=== PATIENT | female | born 1960 | race Caucasian/White ===

== ENCOUNTER 2017-02-21 22:18 | Inpatient (IN) | payer MEDICAID ==
[~2017-02-21] VITALS: Ht 152.4 cm; Wt 135.2 kg
--- NOTE | 2017-02-21 22:34 | NUR ---
PT TO LOBBY PENDING BED AVAILABILITY, RESP E/U. NO ACUTE DISTRESS NOTED.
--- NOTE | 2017-02-21 23:54 | NUR ---
REC'D A 56/F IN RM 2B WITH C/O SOB X 6 MONTHS. PT REPORTS MUSCLE SPASM AROUND THE RIB CAGE. PT AAOX4, RESP EVEN AND UNLABORED. CALL LIGHT WITHIN REACH, WILL CONTINUE TO MONITOR.
--- NOTE | 2017-02-22 00:15 | NUR ---
DR RONQUILLO AT BEDSIDE FOR MSE
[2017-02-22 00:48] LABS: BASOPHIL % 0.4 % (0-2); PLATELET COUNT 233 x10^3mcL (130-400)
--- NOTE | 2017-02-22 01:19 | NUR ---
PT AMBULATED TO THE RESTROOM WITH SPECIMEN CONTAINER.
[2017-02-22 01:27] LABS: CALCIUM 9.1 mg/dL (8.5-10.1); CARBON DIOXIDE 30.9 mmol/L (21-32); CHLORIDE SERUM 106 mmol/L (98-107); CREATININE SERUM 0.9 mg/dL (0.6-1.0); GFR1 > 60 mL/min; GLUCOSE SERUM 126 mg/dL (74-106); POTASSIUM SERUM 3.6 mmol/L (3.5-5.1); SODIUM SERUM 143 mmol/L (136-145)
--- NOTE | 2017-02-22 01:31 | NUR ---
SECOND BREATHING TREATMENT IN PROGRESS.
[2017-02-22 01:36] LABS: microscopic required? NO
[2017-02-22 01:40] LABS: ALBUMIN 3.6 g/dL (3.4-5.0); ALKALINE PHOSPHATASE 70 U/L (46-116); ALT/SGPT 23 U/L (14-59); AMYLASE 36 U/L (25-115); AST/SGOT 13 U/L (15-37); CHOLESTEROL 169 mg/dL (<200); HDL CHOLESTEROL 45 mg/dL (40-60); LIPASE 148 IU/L (73-393); T4(THYROXINE) 7.8 ug/dL (4.7-13.3); TOTAL PROTEIN, SERUM 7.4 g/dL (6.4-8.2)
[2017-02-22 01:51] LABS: UA SPECIFIC GRAVITY >=1.030 (1.005-1.035)
[2017-02-22 01:52] LABS: urine erythrocyte NEGATIVE (NEGATIVE)
[2017-02-22 02:01] LABS: AMPHETAMINE QUAL UR NONE DETECTED (NEG <=1000)
--- NOTE | 2017-02-22 02:08 | NUR ---
MEDICATED PT ORDERED. PLEASE SEE EMAR.
--- NOTE | 2017-02-22 02:13 | NUR ---
REPORT GIVEN TO ADAN LYNCH TO ASSUME CARE OF THE PT.
[2017-02-22 02:31] VITALS: BP 137/68
[2017-02-22 02:31] LABS: CHOLESTEROL/HDL RATIO 3.9; MAGNESIUM 2.4 mg/dL (1.8-2.4); PHOSPHOROUS 3.5 mg/dL (2.5-4.9)
[2017-02-22 02:48] LABS: T3 TOTAL 0.89 ng/mL
[2017-02-22 02:55] LABS: FREE T4 0.94 ng/dL (0.76-1.46); FREE THYROXINE INDEX 2.9 ug/dL (1.4-4.5); T4(THYROXINE) 8.1 ug/dL (4.7-13.3)
--- NOTE | 2017-02-22 03:02 | NUR ---
NEWLY ADMITTED 56 YEAR OLD FEMALE PT, ALERT AND ORIENTED. PLEASANT AND COOPERATIVE. LUNGS CLEAR/ DIMINISHED ON AUSCULTATIONS BILATERALLY ON UPPER AND LOWER BASES. ON 02SAT 97 WITH 2 LITERS NASAL CANNULA. CANNOT LAY FLAT IN BED. SHE GETS SHORT OF BREATH. AND ALSO SHE GOES TO THE BATHROOM A LOT BECAUSE THEY GAVE LASIX IN ED. BOWEL SOUNDS ACTIVE AND PRESENT. NO DISTETNION NOTED. AMBULATORY. PT STATED SHE HAS CHRONIC PAIN IN HER LOWER SPINE AREA AND PAIN RADIATES TO THE SIDES OF HER MUSCLES. HEPLOCK IV IN THE LEFT AC. ANGIOCATH GUAGE 20. PATENT AND INTACT. WILL MONITOR.
--- NOTE | 2017-02-22 04:53 | NUR ---
PT C/O MODERATE LOWER SPINE/BACK 11/30. MEDICATED WITH NORCO 1 TAB PO. WILL MONITOR.
--- NOTE | 2017-02-22 04:58 | NUR ---
PT IS RESTING. COUGHING OCCASIONALLY. SHE URINATED SEVERAL TIMES AFTER LASIX DOSE SHE GOT FROM ER. STEADY GAIT. OBESITY. HOLD IV FOR NOW WHILE STILL GOING TO THE BATHROOM A LOT. WILL CONTINUE TO MONITOR. NOTED ALSO DRINKING A LOT OF WATER.
--- NOTE | 2017-02-22 07:05 | NUR ---
PT IN BED. NO DISTRESS NOTED. AWAKE, ALERT, ABLE TO LET NEEDS KNOWN. IV SALINE LOCKED TO LAC #20. BED IN LOWEST POSITION, CALL LIGHT WITHIN REACH.
[2017-02-22 09:23] VITALS: BP 107/71
--- NOTE | 2017-02-22 10:22 | NUR ---
echocardiogram completed.
--- NOTE | 2017-02-22 12:35 | NUR ---
ULTRASOUND FOR LOWER EXTREMITIES IN PROGRESS. PT TOLERATING PROCEDURE WELL. TECH AT BEDSIDE.
[2017-02-22 15:08] VITALS: BP 111/58
--- NOTE | 2017-02-22 16:15 | NUR ---
PT C/O CHEST PAIN 03/02. DR. DUNLAP MADE AWARE OF PT'S STATUS. WILL CONTINUE TO MONITOR.
--- NOTE | 2017-02-22 16:37 | NUR ---
MEDICATED FOR CHEST PAIN 5/10 PER EMAR. PT TOLERATED WELL. BP:123/68, HR:79, RR:20 CALL LIGHT WITHIN REACH.
--- NOTE | 2017-02-22 17:15 | NUR ---
PASSED AFTERNOON MEDS. PT TOLERATED WELL. PT STATES CHEST PAIN HAS DECREASED TO 1/10 DENIES HEADACHE AT MOMENT. CALL LIGHT WITHIN REACH. WILL CONTINUE TO MONITOR.
[2017-02-22 17:30] VITALS: BP 119/62
--- NOTE | 2017-02-22 19:30 | NUR ---
PT IS ALERT AND ORIENTED X 4. PLEASANT AND COOPERATIVE. LUNGS DIMINISHED CLEAR ON AUSCULTATIONS BILATERALLY UPPER AND LOWER BASES. OCCASIONAL COUGHING. PT DENIES CHEST PAIN FOR NOW. BUT HAD EPISODE THIS AFTERNOON. IV HEPLOCK IN THE LEFT AC. PATENT AND INTACT. HOLD FLUIDS FOR NOW. BOWEL SOUNDS ACTIVE AND PRESENT. NO DISTENETION NOTED. WILL MONITOR.
--- NOTE | 2017-02-22 21:05 | NUR ---
PT C/O LOWER BACK PAIN/ SPINE 11/30. MEDICATED WITH NORCO 1TAB PO. WILL MONITOR.
[2017-02-22 21:45] VITALS: BP 98/49
--- NOTE | 2017-02-23 04:59 | NUR ---
PT IS RESTING. DENIES ANY PAIN OR ANY DISCOMFORT. LEFT AC HEPLOCK. PATENT AND INTACT. MADE COMFORTABLE IN BED. CALL LIGHT WITHIN EASY REACH.
[2017-02-23 05:29] VITALS: BP 91/46
--- NOTE | 2017-02-23 08:30 | NUR ---
MEDICAL TEAM IN TO SEE PT. PLAN OF CARE EXPLAINED. PT RECEPTIVE OF CARE. WILL CONTINUE TO MONITOR.
[2017-02-23 09:10] LABS: PLATELET COUNT 258 x10^3mcL (130-400); RED CELL DISTRIBUTION WIDTH 14.3 % (11.5-14.5)
[2017-02-23 09:14] LABS: BASOPHIL % 0 % (0-2)
[2017-02-23 09:16] LABS: CALCIUM 8.8 mg/dL (8.5-10.1); CARBON DIOXIDE 29.1 mmol/L (21-32); CHLORIDE SERUM 101 mmol/L (98-107); CREATININE SERUM 0.8 mg/dL (0.6-1.0); GFR1 > 60 mL/min; GLUCOSE SERUM 179 mg/dL (74-106); POTASSIUM SERUM 3.5 mmol/L (3.5-5.1); SODIUM SERUM 137 mmol/L (136-145)
[2017-02-23 09:36] VITALS: BP 107/59
--- NOTE | 2017-02-23 11:00 | NUR ---
NASAL CANULA DISCONTINUED. O2SAT: 97%. WILL CONTINUE TO MONITOR.
--- NOTE | 2017-02-23 12:25 | NUR ---
PT ON ROOM AIR, DENIES SOB RR:18 O2SAT:94% PT BLOOD GLUCOSE: 128 NO COVERAGE. CALL LIGHT WITHIN REACH.
--- NOTE | 2017-02-23 12:32 | NUR ---
1. Continue CCHO-60 gm diet per doctor. 2. RD provided DM nutrition education and handouts to pt.
--- NOTE | 2017-02-23 12:32 | NUR ---
Initial Nutrition Assessment Dx: Chest Pain, CHF PMHx: Stage rectal CA s/p chemo (3 years ago), urine mass s/p hysterectomy, HTN, COPD PSHx: Appendectomy, hysterectomy, tonsillectomy Labs: BG 179 H, BUN 24 H, WBC 11.3 H; (02/22) AST 13 L, LDL 116 H, A1C 6.9 H Meds: Colace, D50, Glucophage, humulin R, NS IV, solu-medrol, zofran Current Diet Order: CCHO-60 gm PO Intakes: (02/22) L: 100%, D: 100%; (02/23) B: 100% Ht: 60", 5'. Wt: 297 lb, 135 kg. BMI: 58.2 kg/m2 (Obesity Class III) IBW: 100 lb, 45 kg. %IBW: 300%. Adj BW: 149 lb, 68 kg. UBW: 198 lb, 90 kg - Unsure how long ago per pt. Age: 56 Y/O F Food Allergies: None Skin: Intact. Rolo 22. Edema: None GI: Active bowel sounds. Last BM 02/22. Pt found with possible acute respiratory failure likely secondary to pleural effusion vs COPD exacerbation vs ACSDHF, r/o PE, DMOOC with possible HCS per doctor's notes. Per doctor's progress note 02/22, Dr. Mabry consulted, believes pt has possible COPD vs muscle spasm; Pt with possible acute respiratory failure possible secondary to COPD, new onset chest pain secondary to costochondritis vs GERD, r/o ACS. Pt was seen sitting at edge of bed during RD visit, appears overly-nourished, consistent with documented anthropometrics. Pt stated she has good appetite, no issues at this time, declined further modifications in diet textures. Pt stated she has no prior history of diabetes. Problem with: N: None. V: None. D: None. C: None. Problems with: Chewing: None. Pt with no teeth/dentures, declined modified diet textures. Swallowing: None. Current Appetite: Good Recent Weight Change: None per pt; Noted in chart - +99 lb - Unsure of accuracy. % Weight Change: N/A Vitamin/Supplement use: none Diet at Home: Regular Physical Activity: Walks occasionally, chasing Grandchild around the house Education: RD provided DM nutrition education to pt. RD discussed portion control, carb counting, serving sizes, food/snack options, and exercise. Handouts provided. DM class flyer provide as well. Pt encouraged to attend DM class. Pt verbalizes understanding, receptive of education. Estimated Nutritional Needs Based Adjusted BW 149 lb, 68 kg. Energy: 1729-9958 kcal/day (25-30 kcal/kg for Maintenance) Protein: 68-82 gm/day (1-1.2 gm/kg for Repletion) Fluids: 2040 ml/day (30 ml/kg for Maintenance) or per doctor Nutrition Diagnosis Altered nutrition related labs related to endocrine dysfunction, possible new onset DM as evidenced by elevated BG 179 mg/dL and A1C 6.9% Intervention 1. Continue CCHO-60 gm diet per doctor. 2. RD provided DM nutrition education and handouts to pt. Monitor/Evaluate Goal: PO intakes to meet >75% of estimated needs Monitor: PO intakes, tolerance to diet, labs (BG), skin integrity, GI function F/U in 7 days as LOW risk (03/02)
[2017-02-23 13:45] VITALS: BP 111/56
[2017-02-23 17:23] VITALS: BP 114/63
--- NOTE | 2017-02-23 18:44 | NUR ---
PT REPORTS COMFORT. DENIES PAIN AT MOMENT. CALL LIGHT WITHIN REACH.
--- NOTE | 2017-02-23 19:30 | NUR ---
PT IS ALERT AND ORIENTED, PLEASANT AND COOPERATIVE. LUNGS CLEAR DIMINISHED AND SOME CONGESTIONS. WITH HHN TREATMENT. RT PROTOCOL. CXR-NEGATIVE. AMBULATORY. HEPLOCK IV. IN THE LEFT AC. PATENT AND INTACT. MADE COMFORTABLE IN BED. CALL LIGHT WITHIN EASY REACH. WITH COUGH MEDICINE. WILL CONTINUE TO MONITOR.
--- NOTE | 2017-02-23 21:28 | NUR ---
PT C/O LOWER BACK PAIN 10/30. MEDICATED WITH NORCO 1 TAB PO, WILL MONITOR.
--- NOTE | 2017-02-23 21:33 | NUR ---
PT ALSO C/O COUGHING OCCASIONALLY. MEDICATED WITH ROBITUSSIN WITH CODEINE 5 ML WILL MONITOR.
[2017-02-23 23:11] VITALS: BP 132/72
--- NOTE | 2017-02-24 01:17 | NUR ---
PT'S HEART RATE OCCASIONALLY DROPS TO THE 50'S AND 60'S. RESTING WELL. LEFT AC HEPLOCK PATENT AND INTACT. FLUSHED WITH NS. WILL CONINUE TO MONITOR.
--- NOTE | 2017-02-24 05:16 | NUR ---
PT IS RESTING. DENIES ANY PAIN OR DISCOMFORT. MADE COMFORTABLE IN BED. COUGH IS LESS FREQUENT. ROBITUSSIN WITH CODEINE WAS GIVEN. WILL MONITOR.
[2017-02-24 06:22] LABS: PLATELET COUNT 295 x10^3mcL (130-400); RED CELL DISTRIBUTION WIDTH 14.2 % (11.5-14.5)
[2017-02-24 06:28] LABS: CALCIUM 9.3 mg/dL (8.5-10.1); CARBON DIOXIDE 32.7 mmol/L (21-32); CHLORIDE SERUM 101 mmol/L (98-107); CREATININE SERUM 0.9 mg/dL (0.6-1.0); GFR1 > 60 mL/min; GLUCOSE SERUM 160 mg/dL (74-106); POTASSIUM SERUM 4.6 mmol/L (3.5-5.1); SODIUM SERUM 139 mmol/L (136-145)
[2017-02-24 06:35] VITALS: BP 113/50
[2017-02-24 06:52] LABS: BASOPHIL % 0 % (0-2)
--- NOTE | 2017-02-24 09:25 | NUR ---
PASSED MORNING MEDS. PT TOLERATED WELL. PT DENIES PAIN. PT REPORTS COUGH AND TIGHTNESS AT EPIGASTIC AREA. CALL LIGHT WITHIN REACH.
--- NOTE | 2017-02-24 10:05 | NUR ---
PT NPO FOR PLANNED CT SCAN WITH CONTRAST. METFORMIN ON HOLD.
[2017-02-24 12:12] VITALS: BP 122/69
--- NOTE | 2017-02-24 14:30 | NUR ---
PT TAKEN TO CT SCAN. TRANSPORTED VIA WHEELCHAIR.
--- NOTE | 2017-02-24 16:00 | NUR ---
PT C/O COUGH, MEDICATED PER EMAR. PT TOLERATED WELL. PROVIDED WATER. PT DENIES PAIN AT MOMENT. CONTINUES ON ROOM AIR. DENIES SOB. CALL LIGHT WITHIN REACH.
[2017-02-24 18:01] VITALS: BP 142/76
--- NOTE | 2017-02-24 19:00 | NUR ---
PT DENIES PAIN. REPORTS MILD CHEST TIGHTNESS, COUGH PERSISTS. DENIES SOB. ON 2LNC AT MOMENT STATES NEEDS IT AT TIMES. IV ACCESS SALINE LOCKED TO LAC #20. CALL LIGHT WITHIN REACH.
--- NOTE | 2017-02-24 19:30 | NUR ---
PT IS ALERT AND ORIENTED. PLEASANT AND COOPERATIVE. DIMINISHED LUNG SOUNDS AND MILD WHEEZING. HAD CT ANGIO PENDING RESULT AND WILL HAVE KUB TONIGHT. PT IS AMBULATORY. HEPLOCK IN THE LEFT AC. TELE NO. 31. NSR. PT HAS OCCASIONAL COUGHING AND RECEIVING ROBITUSSIN WITH CODEINE 5 ML EVERY 6 HOURS. AND EFFECTIVE. MADE COMFORTABLE IN BED. CALL LIGHT WITHIN EASY REACH.
--- NOTE | 2017-02-24 20:54 | NUR ---
PT C/O MODERATE BACK/ PAIN 10/30. MEDICATED WITH NORCO 1 TAB PO WILL MONITOR.
[2017-02-24 21:42] VITALS: BP 134/66
--- NOTE | 2017-02-25 05:13 | NUR ---
PT IS RESTING.DENIES ANY PAIN OR DISCOMFORT. WITH BRP. MADE COMFORTABLE IN BED. CALL LIGHT WITHIN EASY REACH. LEFT AC IV SITE/HEPLOCK. MADE COMFORTABLE IN BED. CALL LIGHT WITHIN EASY REACH.
[2017-02-25 05:32] VITALS: BP 111/60
[2017-02-25 05:34] VITALS: BP 119/72
--- NOTE | 2017-02-25 05:41 | NUR ---
PT'S BLOOD SUGAR WAS 169 MG/DL.3 UNITS REG INSULIN GIVEN. WILL CONTINUE TO MONITOR.
--- NOTE | 2017-02-25 06:28 | NUR ---
NEW ORDER TO WALK THE PT FOR- 6 MINUTES WALK TEST TO TEST IF SHE DESATS. PT IS STILL SLEEPING DURING ROUNDS. WILL GIVE REPORT TO DAY SHIFT RN.
[2017-02-25 06:41] LABS: CALCIUM 9.2 mg/dL (8.5-10.1); CARBON DIOXIDE 30.9 mmol/L (21-32); CHLORIDE SERUM 101 mmol/L (98-107); CREATININE SERUM 0.8 mg/dL (0.6-1.0); GFR1 > 60 mL/min; GLUCOSE SERUM 153 mg/dL (74-106); POTASSIUM SERUM 4.6 mmol/L (3.5-5.1); SODIUM SERUM 138 mmol/L (136-145)
--- NOTE | 2017-02-25 07:55 | NUR ---
MADE ROUNDS WITH DR. MICHAELS AND MEDICINE TEAM, Pt. POSSIBLE DISCHARGE TODAY AND AGREED WITH PLAN OF CARE.
[2017-02-25] MEDS ORDERED: LIPI10 PO (09:14)
[2017-02-25] MEDS ORDERED: METOPROLOL TART25 M1 PO (09:14)
[2017-02-25] MEDS ORDERED: GLU500 PO (09:15)
[2017-02-25] MEDS ORDERED: ECO81 PO (09:15)
[2017-02-25] MEDS ORDERED: ZES10 PO (09:15)
[2017-02-25] MEDS ORDERED: PROVENTIL0.09 MG/A1 INH (09:22)
[2017-02-25] MEDS ORDERED: SINGULAIR10 MG PO (09:22)
[2017-02-25] MEDS ORDERED: MEDDP PO (09:24)
[2017-02-25 09:33] VITALS: BP 146/100
--- NOTE | 2017-02-25 10:16 | NUR ---
Pt. AMBULATED HALLWAYS FOR 6 MINUTES Pt. WITH STEADY GAIT AND TOLERATED WELL. DENIES SOB/DYSPNEA. O2 SAT 93-94% DURING AMBULATION.
[2017-02-25 13:14] VITALS: BP 142/73
--- NOTE | 2017-02-25 14:36 | NUR ---
Pt. AAOX4, RESPIRATIONS EVEN AND UNLABORED RA. DENIES SOB OR DYSPNEA. NO DISTRESS AT THIS TIME. DENIES PAIN/DISCOMFORT. ALL RX, DISCHARGE AND FOLLOW UP APPOINMENT EXPLAINED TO Pt. AND VERBALIZED UNDERSTANDING. IV AT LEFT AC REMOVED WITH CATH INTACT, PRESSURE APPLIED AND NO BLEEDING NOTED. TELE RETURNED. Pt. LEFT WITH ALL BELONGINGS.
== END 2017-02-25 14:38 | disposition home or self-care (01) | DRG 140 ==
LOC: ED 22:18 → DU 02-22 01:50
PROVIDERS: Emergency Medicine; ADMIT Family Medicine
DX: J44.1 Chronic obstructive pulmonary disease with (acute) exacerbation (principal); N17.0 Acute kidney failure with tubular necrosis; J96.00 Acute respiratory failure, unspecified whether with hypoxia or hypercapnia; Z68.43 Body mass index [BMI] 50.0-59.9, adult; E66.01 Morbid (severe) obesity due to excess calories; D68.69 Other thrombophilia; E11.65 Type 2 diabetes mellitus with hyperglycemia; M94.0 Chondrocostal junction syndrome [Tietze]; E02 Subclinical iodine-deficiency hypothyroidism; I10 Essential (primary) hypertension; Z59.0 Homelessness; Z92.3 Personal history of irradiation; Z87.891 Personal history of nicotine dependence; Z92.21 Personal history of antineoplastic chemotherapy; Z85.040 Personal history of malignant carcinoid tumor of rectum; Z85.89 Personal history of malignant neoplasm of other organs and systems
CPT/HCPCS: 82962; 83880; 84439; 94150; J1885; J1940; J2270; J2920; J2930; J7613; J7620; J7644; Q0092; Q9967

== ENCOUNTER 2017-04-02 18:23 | Emergency (ER) | payer MEDICAID ==
[~2017-04-02 18:23] MED LIST: ECO81 PO; GLU500 PO; LIPI10 PO; MEDDP PO; METOPROLOL TART25 M1 PO; PROVENTIL0.09 MG/A1 INH; SINGULAIR10 MG PO; ZES10 PO
[2017-04-02 21:22] LABS: BASOPHIL % 0.4 % (0-2); PLATELET COUNT 307 x10^3mcL (130-400); RED CELL DISTRIBUTION WIDTH 13.5 % (11.5-14.5)
[2017-04-02 21:24] LABS: CALCIUM 9.2 mg/dL (8.5-10.1); CARBON DIOXIDE 28.2 mmol/L (21-32); CHLORIDE SERUM 101 mmol/L (98-107); CREATININE SERUM 0.9 mg/dL (0.6-1.0); GFR1 > 60 mL/min; GLUCOSE SERUM 121 mg/dL (74-106); POTASSIUM SERUM 4.4 mmol/L (3.5-5.1); SODIUM SERUM 138 mmol/L (136-145)
[2017-04-02 21:29] LABS: ALBUMIN 3.6 g/dL (3.4-5.0); ALKALINE PHOSPHATASE 81 U/L (46-116); ALT/SGPT 31 U/L (14-59); AST/SGOT 17 U/L (15-37); BILIRUBIN TOTAL 0.3 mg/dL (0.20-1.00); TOTAL PROTEIN, SERUM 7.6 g/dL (6.4-8.2)
[2017-04-03 00:40] VITALS: BP 142/84
== END 2017-04-03 00:40 | disposition home or self-care (01) ==
LOC: ED 18:23
PROVIDERS: Emergency Medicine
DX: R10.9 Unspecified abdominal pain (principal); I10 Essential (primary) hypertension
CPT/HCPCS: J1170